=== PATIENT | female | born 1940 | race Caucasian/White ===

== ENCOUNTER → 2023-04-17 14:34 | Outpatient (BNVA) | payer MEDICARE, SELFPAY | PROVIDERS: PCP Internal Medicine; Visit Provider Nurse Practitioner Family | DX: M25.551 Pain in right hip (principal); G89.29 Other chronic pain; M54.16 Radiculopathy, lumbar region; M47.816 Spondylosis without myelopathy or radiculopathy, lumbar region; M81.0 Age-related osteoporosis without current pathological fracture | CPT/HCPCS: 99202 ==